=== PATIENT | female | born 1935 | race Caucasian/White ===

== ENCOUNTER 2016-08-16 05:10 | Inpatient (IN) | payer OTHER, MEDICARE ==
[2016-08-10 10:44] LABS: HEMATOCRIT 36.6 % (37.0-47.0); HEMOGLOBIN 12.1 gm/dL (12.0-15.0); MCH 33.7 pg (26.0-34.0); MCHC 33.1 % (28.0-37.0); MCV 101.8 fL (80.0-100.0); RBC 3.59 mil/uL (4.20-5.00); RDW 14.1 % (10.5-14.5); WBC 6.7 thou/uL (4.0-11.0)
[2016-08-10 10:52] LABS: URINE BILIRUBIN NEGATIVE (Negative); URINE BLOOD TRACE (Negative); URINE COLOR YELLOW; URINE GLUCOSE-RANDOM* NEGATIVE (Negative); URINE KETONES NEGATIVE (Negative); URINE LEUKOCYTES-REFLEX 1+ (Negative); URINE PROTEIN (DIPSTICK) 1+ (Negative); URINE UROBILINOGEN 0.2 E.U./dl (0.2-1.0)
[2016-08-10 10:56] LABS: APTT 23.8 Seconds (24.5-32.8)
[2016-08-10 11:01] LABS: ALBUMIN 3.5 g/dL (3.4-5.0); CALCIUM 9.1 mg/dL (8.5-10.1); CREATININE 1.9 mg/dL (0.6-1.3); POTASSIUM 4.1 mmol/L (3.5-5.1); TOTAL BILIRUBIN 0.4 mg/dL (<0.1-1.0); TOTAL PROTEIN 7.8 g/dL (6.4-8.2)
[2016-08-10 12:26] LABS: CASTS None Seen /LPF (None Seen); SQUAMOUS 4-10 Moderate /LPF (0-3)
[2016-08-10 12:27] LABS: CRYSTALS None Seen /LPF (None Seen); URINE RBC None Seen /HPF (0-2); URINE WBC-REFLEX 6-15 Few /HPF (0-5)
[~2016-08-16] VITALS: Ht 162.6 cm; Wt 87.1 kg
[2016-08-16] VITALS (12 sets, daily range): BP systolic 108–169; BP diastolic 44–81
--- NOTE | ~2016-08-16 | CATHLAB ---
[facility] [place] [address] INVASIVE PROCEDURE REPORT Name: PARULTONI MICHELLE Room #: 243-P [facility] M.R.#: [id number] Admission: 08/16/16 Attend Phys: Henry Landers MD Discharge: Date of : 39 Date of Service: 08/16/16 1554 Report #: [id number] THIS REPORT FOR: //name// CC: Yunior Landers DATE OF SERVICE: 08/16/2016 NAME OF THE STUDY: 1. Abdominal aortic aneurysm repair using [place] Excluder stent graft. 2. Right renal angiography. OPERATORS: 1. Dr. Henry Landers of cardiothoracic surgery. 2. Dr. Ross West of interventional radiology. INDICATIONS: 1. Abdominal aortic aneurysm measuring up to 6 cm. 2. Coronary artery disease. 3. Peripheral arterial disease. 4. Left renal artery occlusion. 5. Hypertension. 6. Hypercholesterolemia. DESCRIPTION OF PROCEDURE: Procedure and risks of abdominal aortic aneurysm repair using Carbond[place] Excluder stent graft were discussed with the patient by Dr. Landers including the risks and benefits of open repair versus stent graft repair and consent obtained. The risk of worsening renal failure requiring dialysis was also discussed. The patient's abdomen and both groins were prepped and draped in normal sterile fashion after the patient brought to the interventional operating suite and general anesthesia induced. Dr. Landers first performed cut down over the right common femoral artery and then over the left common femoral artery securing both of these vessels with vessel loops. I then used an 18-gauge needle to puncture the right common femoral artery followed by a wire followed by a 12-Guinean sheath. I manipulated the catheter to the level of the proximal descending thoracic aorta to allow placement of a support wire. Subsequently, Dr. Landers had made a small arteriotomy in the right common femoral artery and I placed an 18-Guinean Carbondale sheath from the right groin to the level of the mid infrarenal abdominal aorta. I then used an 18-gauge needle to make a puncture into the left common femoral artery followed by a wire, followed by a 12-Guinean sheath. I placed an angled catheter into the left groin to the level of the proximal descending thoracic aorta to allow placement of a support wire. Following this, a 12-Guinean Carbondale sheath was placed via the left groin over the support wire to the level of the mid infrarenal abdominal aorta. Subsequently, I placed a visceral catheter through this sheath and selectively catheterized the right renal artery and right renal [address] [address] INVASIVE PROCEDURE REPORT Name: TONI TERAN Room #: 243-P [facility] IN M.R.#: [id number] Admission: 08/16/16 Attend Phys: Henry Landers MD Discharge: Date of : 39 Date of Service: 08/16/16 1554 Report #: [id number] angiogram was obtained. A SV5 wire was then placed into the right renal artery and the diagnostic catheter removed and a guiding catheter placed at the origin of the right renal artery for positioning purposes. We selected a 35 x 14 x 18 cm [place] Excluder main body stent graft and placed this via the right groin. Dr. Landers and I worked together for positioning and deployment of this a short distance below the level of the right renal artery. Via the left groin, I then cannulated the contralateral gate and confirmed a good intragraft position in the usual fashion. The right renal wire and catheter had been removed. Following this, we selected a 12 mm x 14 cm contralateral limb and we placed this via the left groin. Following this, Dr. Landers and I worked together for the remaining deployment of the right iliac limb of the stent graft. Following this, a 14 mm balloon catheter was inflated throughout both iliac limbs. A [place] Tri-Lobe balloon was then placed via the right groin and inflated several times at the proximal attachment side of the graft. Following this, a pigtail catheter was placed into the upper portion of the graft. A final aortoiliac angiogram was obtained. Retrograde injections of both sheaths were accomplished. The catheters and wires were carefully removed. Both sheaths were carefully removed. Dr. Landers then closed both arteriotomy sites in both cut down incisions. Please see his note for full details. FINDINGS: Technically satisfactory abdominal aortic aneurysm repair using [place]ale Excluder stent graft. There is good flow throughout the stent graft. There is no evidence of endoleak. Specifically, no proximal type 1 endoleak is identified. Both iliac limbs are widely patent. Flow was preserved in both internal iliac arteries. RIGHT RENAL ANGIOGRAM: The right renal artery shows mild plaque in its origin, but no flow limiting stenosis. No branch vessel stenosis. IMPRESSION: Technically satisfactory abdominal aortic aneurysm repair using Carbondale Excluder stent graft. <ELECTRONICALLY SIGNED> By: Ross West MD 08/17/16 1023 1554 0115 Ross West MD /nt
--- NOTE | ~2016-08-16 | O ---
[facility] [place] [address] OPERATIVE REPORT Name: TONI TERNA Room #: 243-P [facility] IN M.R.#: [id number] Admission: 08/16/16 Attend Phys: Henry Landers MD Discharge: 08/17/16 Date of : 39 Report #: [id number] THIS REPORT FOR: //name// CC: Yunior Landers DATE OF SERVICE: 08/16/2016 PREOPERATIVE DIAGNOSIS: Infrarenal abdominal aortic aneurysm. POSTOPERATIVE DIAGNOSIS: Infrarenal abdominal aortic aneurysm. OPERATION: Stent graft implant of infrarenal abdominal aortic aneurysm device with appropriate arteriography. SURGEON: Henry Landers MD and Ross West MD ANESTHESIA: General. INDICATION: After general anesthesia was established, an incision was made in each groin to expose the common femoral artery. On the right side, the previously placed closure device had created an inflammatory response that made this a bit difficult; however, this was accomplished satisfactorily and on each side 11-Grenadian introducer sheaths were placed after 10,000 units of heparin were given. Through each side, J wires were passed and then catheter was passed and this was used to exchange for a stiff Keegan wire. Over the Keegan wire on the right side, an 18-Grenadian dilator and sheath was placed through the femoral artery cutdown. On the left side, a 12-Grenadian sheath was placed over the Keegan wire through a femoral artery cutdown. Through the left side, a universal Select catheter was placed in the right renal artery and then a guidewire and catheter were used to identify the renal artery takeoff and this was done to minimize contrast use patient with creatinine of 1.9. Based on measurements from CT scan, a 35 mm x 14 mm x 18 cm main body device was passed through the right side 18 Grenadian sheath and deployed just below the takeoff of the renal arteries. Sufficient length was placed so that a cuff could be placed if there was a leak in this divergent neck. The contralateral gate was cannulated and then a sheath shot was taken after good position and the gate was ascertained. Sheath shot with a marker catheter in place suggested that we should use a 14 cm length device and this was passed through the 12-Grenadian sheath and deployed at the contralateral gate. [facility] [address] [place] [address] OPERATIVE REPORT Name: TONI TERAN Room #: 243-P [facility] IN M.R.#: [id number] Admission: 08/16/16 Attend Phys: Henry Landers MD Discharge: 08/17/16 Date of : 39 Report #: [id number] The remainder of the main body was deployed. With all of devices deployed, the Tri-Lobe balloon was used to set the hooks at the proximal landing zone and then 14 mm noncompliant balloon was used to fully dilate the limbs within the contralateral gate and in the iliac arteries. Final arteriogram was taken and this showed no evidence of endoleak. It should be mentioned that individual iliac shots were taken as well to identify distal position of the graft to show that there were no distal leaks. With this information, the sheaths were placed over the stiff wires into the dilators and then these were removed sequentially from the left and right sides and then the arteriotomies were closed with interrupted Prolene. After flow was reestablished, heparin was reversed with small amount of protamine. Good distal pulses were ascertained. When hemostasis was satisfactory, the wounds were closed in layers. The patient was taken to the recovery area in good condition having tolerated the procedure well. Dorsalis pedis pulses were palpable. All counts were reported as correct. <ELECTRONICALLY SIGNED> By: Henry Landers MD 08/25/16 1739 1922 2312 Henry Landers MD /nt
[~2016-08-16 05:10] MED LIST: ARIMIDEX PO; BENICAR20 MG PO; BYSTOLIC 5 MG5 M1 PO; BYSTOLIC10 MG PO; CALCIUM 600 +1 EAC1 PO; CENTRUM SILVER1 EAC1 PO; CRESTOR10 MG PO; CRESTOR20 MG PO; DEMADEX10 MG PO; IRON PO; NORVASC 5 MG TAB5 MG PO; PRILOSEC 20 MG20 MG PO
[2016-08-17] VITALS (12 sets, daily range): BP systolic 97–126; BP diastolic 45–61
[2016-08-17 04:36] LABS: HEMATOCRIT 36.2 % (37.0-47.0); HEMOGLOBIN 11.4 gm/dL (12.0-15.0); MCH 33.8 pg (26.0-34.0); MCHC 31.6 % (28.0-37.0); MCV 106.8 fL (80.0-100.0); RBC 3.39 mil/uL (4.20-5.00); RDW 15.1 % (10.5-14.5)
[2016-08-17 04:48] LABS: CALCIUM 8.3 mg/dL (8.5-10.1); CREATININE 1.6 mg/dL (0.6-1.3); POTASSIUM 4.8 mmol/L (3.5-5.1)
== END 2016-08-17 13:45 | disposition home or self-care (01) | DRG 269 ==
LOC: PRE 05:10 → ICU 05:41 → TBA 05:41 → PRE 09:50 → ICU 18:06
PROVIDERS: Physician Assistant; Surgery Vascular Surgery
PROC: B4161ZZ Fluoroscopy of Right Renal Artery using Low Osmolar Contrast (ICD-10-PCS; principal; 2016-08-16)
PROC: 04V04DZ Restriction of Abdominal Aorta with Intraluminal Device, Percutaneous Endoscopic Approach (ICD-10-PCS; principal; 2016-08-16)
DX: I71.4 Abdominal aortic aneurysm, without rupture (principal); I25.10 Atherosclerotic heart disease of native coronary artery without angina pectoris; I73.9 Peripheral vascular disease, unspecified; I10 Essential (primary) hypertension; E78.00 Pure hypercholesterolemia, unspecified; Z79.899 Other long term (current) drug therapy
CPT/HCPCS: 10196; 47375; 48888; 50010; 50101; 50386; 50455; 51536; 51751; 54118; 55022; 56524; 56526; 56531; 56668; 56760; 57093; 62110; 62900; 65020; 65040; 65043; 70005

== ENCOUNTER → 2017-04-09 | Outpatient (CLI) | payer OTHER, MEDICARE ==
[2017-04-09 11:38] LABS: CREATININE 1.8 mg/dL (0.6-1.0)
== END ==
LOC: CAT 10:55
PROVIDERS: Nuclear Medicine Nuclear Cardiology
DX: I71.4 Abdominal aortic aneurysm, without rupture (principal); K44.9 Diaphragmatic hernia without obstruction or gangrene; Z95.828 Presence of other vascular implants and grafts

== ENCOUNTER → 2018-04-16 | Outpatient (CLI) | payer OTHER, MEDICARE | LOC: CAT 09:16 | DX: I71.4 Abdominal aortic aneurysm, without rupture (principal); N13.30 Unspecified hydronephrosis; N85.8 Other specified noninflammatory disorders of uterus; Z95.828 Presence of other vascular implants and grafts ==

== ENCOUNTER → 2018-10-30 | Outpatient (CLI) | payer OTHER, MEDICARE | LOC: CAT 10:25 | DX: I71.4 Abdominal aortic aneurysm, without rupture (principal); N13.1 Hydronephrosis with ureteral stricture, not elsewhere classified; N85.8 Other specified noninflammatory disorders of uterus; M47.815 Spondylosis without myelopathy or radiculopathy, thoracolumbar region; Z98.890 Other specified postprocedural states ==

== ENCOUNTER → 2018-11-26 | Outpatient (CLI) | payer OTHER, MEDICARE | LOC: LAB 08:01 | PROVIDERS: Nuclear Medicine Nuclear Cardiology | DX: I71.4 Abdominal aortic aneurysm, without rupture (principal); N85.8 Other specified noninflammatory disorders of uterus; N13.30 Unspecified hydronephrosis; N83.8 Other noninflammatory disorders of ovary, fallopian tube and broad ligament; M47.816 Spondylosis without myelopathy or radiculopathy, lumbar region; Z95.828 Presence of other vascular implants and grafts ==

== ENCOUNTER → 2018-12-31 | Outpatient (CLI) | payer OTHER, MEDICARE ==
[~2018-12-31] VITALS: Ht 162.6 cm; Wt 72.6 kg
[~2018-12-31] MED LIST changes: +BYSTOLIC20 MG PO; +CRESTOR40 MG PO; +DEMADEX20 MG PO; +OLMESARTAN MEDO40 MG PO
[2018-12-31 11:53] LABS: HEMATOCRIT 37.8 % (37.0-47.0); HEMOGLOBIN 12.4 gm/dL (12.0-15.0); MCH 33.4 pg (26.0-34.0); MCHC 32.8 g/dL (28.0-37.0); MCV 101.6 fL (80.0-100.0); RBC 3.72 mil/uL (4.20-5.00); RDW 14.3 % (10.5-14.5); WBC 6.8 thou/uL (4.0-11.0)
[2018-12-31 12:02] LABS: CALCIUM 9.6 mg/dL (8.5-10.1); CREATININE 2.4 mg/dL (0.6-1.0); POTASSIUM 4.4 mmol/L (3.5-5.1)
[2018-12-31 12:12] VITALS: BP 164/68
[2018-12-31 14:00] VITALS: BP 177/70
[2018-12-31 14:15] VITALS: BP 187/67
[2018-12-31 14:20] VITALS: BP 189/67
[2018-12-31 14:30] VITALS: BP 189/84
--- NOTE | 2018-12-31 16:39 | NUR ---
RETURN FROM IR AT 1550. HR 65 BP 150/62. RR 14 SAT 97% ON RA. PT AWAKE AND ALERT. AMBULATED TO BATHROOM WITH ASSISTANCE. STEADY GAIT. BANDAID TO BACK CLEAN DRY INTACT. DENIES PAIN. 1615 HR 65 BP 143/88. SAT 98%. IV DC'D. FULL DC INST TO PT AND NEIGHBOR. WILL HAVE F/U CTA IN FOUR MONTHS. 1630 PT DC'D PER WC WITH VOLUNTEER. VERBALIZES UNDERSTANDING OF INST. DRESSING STILL CLEAN DRY INTACT
== END | disposition home or self-care (01) ==
LOC: CAT 11:15
PROVIDERS: Nuclear Medicine Nuclear Cardiology
DX: T82.330A Leakage of aortic (bifurcation) graft (replacement), initial encounter (principal); I71.4 Abdominal aortic aneurysm, without rupture; I10 Essential (primary) hypertension; E78.00 Pure hypercholesterolemia, unspecified; E78.5 Hyperlipidemia, unspecified; K21.9 Gastro-esophageal reflux disease without esophagitis; Z85.3 Personal history of malignant neoplasm of breast; Z86.2 Personal history of diseases of the blood and blood-forming organs and certain disorders involving the immune mechanism; Z98.0 Intestinal bypass and anastomosis status; Z85.038 Personal history of other malignant neoplasm of large intestine; Z82.49 Family history of ischemic heart disease and other diseases of the circulatory system; Z82.3 Family history of stroke; Z87.891 Personal history of nicotine dependence; Y83.8 Other surgical procedures as the cause of abnormal reaction of the patient, or of later complication, without mention of misadventure at the time of the procedure

== ENCOUNTER → 2019-04-30 | Outpatient (CLI) | payer OTHER, MEDICARE ==
[~2019-04-30] MED LIST changes: +GABAPENTIN 100100 MG PO; +MEDROLDOSEPACK PO
[2019-04-30 10:39] LABS: CREATININE 1.6 mg/dL (0.6-1.0)
== END ==
LOC: CAT 10:03
PROVIDERS: Nuclear Medicine Nuclear Cardiology
DX: Z01.812 Encounter for preprocedural laboratory examination (principal); N13.39 Other hydronephrosis; N83.291 Other ovarian cyst, right side; I71.4 Abdominal aortic aneurysm, without rupture; Z95.828 Presence of other vascular implants and grafts

== ENCOUNTER 2019-05-13 10:40 | Inpatient (IN) | payer OTHER, MEDICARE ==
[~2019-05-13] VITALS: Ht 162.6 cm; Wt 74.4 kg
[~2019-05-13 10:40] MED LIST changes: -GABAPENTIN 100100 MG PO; -MEDROLDOSEPACK PO
[2019-05-13 11:09] VITALS: BP 16/79; BP 160/79
[2019-05-13 12:03] LABS: CALCIUM 9.5 mg/dL (8.5-10.1); CREATININE 1.9 mg/dL (0.6-1.0); POTASSIUM 4.4 mmol/L (3.5-5.1)
[2019-05-13 12:08] LABS: RBC 3.06 mil/uL (4.20-5.00)
[2019-05-13 12:09] LABS: HEMATOCRIT 32.1 % (37.0-47.0); HEMOGLOBIN 10.7 gm/dL (12.0-15.0); MCH 34.8 pg (26.0-34.0); MCHC 33.2 g/dL (28.0-37.0); MCV 104.9 fL (80.0-100.0); RDW 14.4 % (10.5-14.5); WBC 7.5 thou/uL (4.0-11.0)
[2019-05-13 20:00] VITALS: BP 116/58
--- NOTE | 2019-05-13 20:18 | NUR ---
PT [facility] AT APPROX 1820[facility] UNTIL 1919. VSS. PT A&OX4. GAVE REPORT FROM PACU TO ONCOMING NURSE AT SHIFT CHANGE.
[2019-05-13 21:00] VITALS: BP 126/59
[2019-05-13 22:00] VITALS: BP 132/51
[2019-05-14 01:17] VITALS: BP 143/70
[2019-05-14 04:55] VITALS: BP 127/53
[2019-05-14 05:29] LABS: HEMATOCRIT 31.4 % (37.0-47.0); HEMOGLOBIN 10.3 gm/dL (12.0-15.0); MCH 34.8 pg (26.0-34.0); MCHC 32.7 g/dL (28.0-37.0); MCV 106.4 fL (80.0-100.0); RBC 2.95 mil/uL (4.20-5.00); WBC 8.4 thou/uL (4.0-11.0)
[2019-05-14 05:45] LABS: CALCIUM 8.9 mg/dL (8.5-10.1); CREATININE 1.6 mg/dL (0.6-1.0); POTASSIUM 4.2 mmol/L (3.5-5.1)
--- NOTE | 2019-05-14 05:52 | NUR ---
ASSUMED PT CARE AT 1900. PT C/O PAIN TO LOWER LEFT EXTREMITY THAT RADIATE TO LOWER BACK. PAIN MEDICATION GIVEN WITH PARTIAL RELIEF. VSS AND PT WAS ABLE TO GET UP AND VOID ON TOILET WITH MINIMAL ASSISTANCE. PT PLAN IS TO BE DISCHARGED AND F/U WITH CLINIC PER PHYSICIAN NOTES. PT IS PROGRESSING TOWARDS DISCHARGE.
[2019-05-14 08:20] VITALS: BP 134/55
[2019-05-14 11:42] VITALS: BP 143/67
--- NOTE | 2019-05-14 13:16 | NUR ---
patient admits post AAA, reports pain in left leg. She reports she cannot get in and out of car with pain in her leg. She is currently rec steriods. Therapy eval in process. Patient prefers no skilled care. Agreeable to HH. She has the home health list of providers. She plans to review list. 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 She cont to drive. Her laundry is in the basement. She throws her laundry in trash bag and then throwns down steps to laundry. She carries laundry up stairs in small batches. Patients PCP Dr Farooq.
[2019-05-14 16:07] VITALS: BP 150/64
--- NOTE | 2019-05-14 17:35 | EKG ---
[place] [address] [facility] [place] [address] ELECTROCARDIOGRAM REPORT Name: TONI TERAN Room #: 210-P [facility] M.R.#: [id number] Admission: 05/13/19 Attend Phys: Ross West MD Discharge: Date of : 39 Report #: [id number] THIS REPORT FOR: //name// [facility] Test Date: 2019-05-14 Test Time: 08:06:59 Pat Name: TONI TERAN Department: Room: 210 P Gender: F Emotional Support Teacher: HOLLIS : 1935 Requested By: Angie Miller Order Number: [id number] MD: Mathieu Montes Measurements Intervals Brook Rate: 73 P: 61 WY: 177 QRS: 38 QRSD: 91 T: 17 QT: 422 QTc: 465 Interpretive Statements Sinus rhythm Anteroseptal infarct, age indeterminate Compared to ECG 02/02/2006 09:23:29 Septal Q waves are more prominent Electronically Signed On 05-14-2019 17:34:47 CDT by Mathieu Montes [email or web address] <ELECTRONICALLY SIGNED> By: Mathieu Montes MD, [facility] 05/14/19 1734 5 5 Mathieu Montes MD, [facility] /EPI
--- NOTE | 2019-05-14 18:03 | NUR ---
ASSUME CARE OF PT AT SHIFT CHANGE. ASSESSMENTS CHARTED. MEDS GIVEN PER MAR. VSS. A&OX4. PT IS SBA WITH WALKER. C/O PAIN IN L HIP AND LEG, BUT REFUSES ANY PAIN MEDS. WORKED WITH PT WHO WILL DO AN EVAL BEFORE DC. WILL CONTINUE TO MONITOR AND FOLLOW POC.
[2019-05-14 21:08] VITALS: BP 144/63
[2019-05-15] VITALS (7 sets, daily range): BP systolic 150–160; BP diastolic 71–75
--- NOTE | 2019-05-15 06:45 | NUR ---
ASSUMED PT CARE AT 1900. PT C/O PAIN HOWEVER REFUSED PAIN MEDICATION. ADVISED PT TO LET STAFF KNOW WHEN SHE WANTED TO BE TREATED FOR PAIN. PT UP TO BATHROOM AND MORE STABLE. PT REQUESTED PAIN MEDICATION AROUND 0130 AND SLEPT THRU NIGHT. PT IS PROGRESSING TOWARDS POC.
[2019-05-15] MEDS ORDERED: MEDROLDOSEPACK PO (07:47)
[2019-05-15] MEDS ORDERED: GABAPENTIN 100100 MG PO (07:47)
[2019-05-15 09:43] LABS: CALCIUM 9.6 mg/dL (8.5-10.1); CREATININE 1.8 mg/dL (0.6-1.0)
--- NOTE | 2019-05-15 10:50 | NUR ---
ASSUMED CARE AT 0700, SHIFT ASSESSMENT DONE, MEDS GIVEN, VSS. ROOM AIR, REPORTED PAIN, REFUSED PAIN MEDS. DISCHARGE ORDER RECEIVED, AWAITING FOR HOME HEALTH SET UP. WILL CONTINUE TO ASSESS AND ASSIST WITH DC PLANNING NEEDED.
--- NOTE | 2019-05-15 14:55 | NUR ---
FAXED REFERRAL TO [facility] SPOKE WITH ALISSA IN ADM SHE RECEIVED REFERRAL AND CAN ACCEPT PT. THEY WILL NOTIFY PT TIME OF VISITS AND WILL START VISITS ON SUNDAY.
--- NOTE | 2019-05-15 15:05 | NUR ---
Fish Cleaner Machine Tender visited with the pt at bedside regarding hh referral and recommendation for RN and PT f/u at home. Pt is receptive. She has the HH list but denied any preference. Dc assortment planner faxed the orders to [facility] and they can accept. They will see the pt tomorrow. Pt notified and her dc instructions updated.
== END 2019-05-15 15:30 | disposition home health service (06) | DRG 316 ==
LOC: CATH 10:40 → EROBS 17:21 → 2N 20:13 → ENTRNSPT 05-15 15:12 → EDTRNSPTSTS 05-15 15:15 → 2N 05-15 15:30 → CMPTRNSPT 05-16 11:27
PROVIDERS: Nuclear Medicine Nuclear Cardiology; Nurse Practitioner Adult Health; ADMIT Internal Medicine Cardiovascular Disease
PROC: 04WY3DZ Revision of Intraluminal Device in Lower Artery, Percutaneous Approach (ICD-10-PCS; principal; 2019-05-13)
PROC: 3E0R3GC Introduction of Other Therapeutic Substance into Spinal Canal, Percutaneous Approach (ICD-10-PCS; principal; 2019-05-13)
PROC: B4191ZZ Fluoroscopy of Lumbar Arteries using Low Osmolar Contrast (ICD-10-PCS; principal; 2019-05-13)
PROC: B41C1ZZ Fluoroscopy of Pelvic Arteries using Low Osmolar Contrast (ICD-10-PCS; principal; 2019-05-13)
DX: T82.338A Leakage of other vascular grafts, initial encounter (principal); I65.29 Occlusion and stenosis of unspecified carotid artery; I70.0 Atherosclerosis of aorta; E78.5 Hyperlipidemia, unspecified; I87.2 Venous insufficiency (chronic) (peripheral); I12.9 Hypertensive chronic kidney disease with stage 1 through stage 4 chronic kidney disease, or unspecified chronic kidney disease; R60.9 Edema, unspecified; E78.00 Pure hypercholesterolemia, unspecified; I08.2 Rheumatic disorders of both aortic and tricuspid valves; Y83.2 Surgical operation with anastomosis, bypass or graft as the cause of abnormal reaction of the patient, or of later complication, without mention of misadventure at the time of the procedure; M54.16 Radiculopathy, lumbar region; Z85.3 Personal history of malignant neoplasm of breast; Z82.3 Family history of stroke; Z82.49 Family history of ischemic heart disease and other diseases of the circulatory system; Z80.8 Family history of malignant neoplasm of other organs or systems; Z90.49 Acquired absence of other specified parts of digestive tract; Z87.891 Personal history of nicotine dependence; Z79.899 Other long term (current) drug therapy; Y92.89 Other specified places as the place of occurrence of the external cause; N18.9 Chronic kidney disease, unspecified
CPT/HCPCS: 10081

== ENCOUNTER → 2019-12-22 | Outpatient (CLI) | payer OTHER, MEDICARE ==
[~2019-12-22] MED LIST changes: +GABAPENTIN 100100 MG PO; +MEDROLDOSEPACK PO
[2019-12-22 12:33] LABS: CALCIUM 9.1 mg/dL (8.5-10.1); CREATININE 2.5 mg/dL (0.6-1.0); POTASSIUM 4.1 mmol/L (3.5-5.1)
[2019-12-22 13:15] LABS: CREATININE 2.6 mg/dL (0.6-1.0)
== END ==
LOC: CAT 12:00
PROVIDERS: Internal Medicine Cardiovascular Disease
DX: N13.30 Unspecified hydronephrosis (principal); I71.4 Abdominal aortic aneurysm, without rupture; N83.202 Unspecified ovarian cyst, left side; M47.815 Spondylosis without myelopathy or radiculopathy, thoracolumbar region

== ENCOUNTER → 2019-12-23 | Outpatient (CLI) | payer OTHER, MEDICARE | LOC: SJCVCIMAG 09:39 | PROVIDERS: ATTEND Internal Medicine Cardiovascular Disease | DX: R94.31 Abnormal electrocardiogram [ECG] [EKG] (principal); I08.2 Rheumatic disorders of both aortic and tricuspid valves; I21.29 ST elevation (STEMI) myocardial infarction involving other sites; N25.9 Disorder resulting from impaired renal tubular function, unspecified; I77.89 Other specified disorders of arteries and arterioles ==

== ENCOUNTER → 2020-09-24 | Outpatient (CLI) | payer OTHER, MEDICARE | LOC: SJCVC 14:29 | PROVIDERS: ATTEND Internal Medicine Cardiovascular Disease | DX: R94.31 Abnormal electrocardiogram [ECG] [EKG] (principal); I49.3 Ventricular premature depolarization; I35.0 Nonrheumatic aortic (valve) stenosis; E78.00 Pure hypercholesterolemia, unspecified; I87.2 Venous insufficiency (chronic) (peripheral); I71.4 Abdominal aortic aneurysm, without rupture; I77.9 Disorder of arteries and arterioles, unspecified; I12.9 Hypertensive chronic kidney disease with stage 1 through stage 4 chronic kidney disease, or unspecified chronic kidney disease; N18.4 Chronic kidney disease, stage 4 (severe); Z95.828 Presence of other vascular implants and grafts; Z98.890 Other specified postprocedural states; Z79.899 Other long term (current) drug therapy; Z87.891 Personal history of nicotine dependence; Z82.49 Family history of ischemic heart disease and other diseases of the circulatory system ==

== ENCOUNTER → 2020-12-28 | Outpatient (CLI) | payer OTHER, MEDICARE | LOC: SJCVCIMAG 10:13 → CAT 10:13 → SJCVCIMAG 10:19 | PROVIDERS: ATTEND Internal Medicine Cardiovascular Disease | DX: I65.23 Occlusion and stenosis of bilateral carotid arteries (principal); R94.31 Abnormal electrocardiogram [ECG] [EKG]; I08.3 Combined rheumatic disorders of mitral, aortic and tricuspid valves; I71.4 Abdominal aortic aneurysm, without rupture; M47.816 Spondylosis without myelopathy or radiculopathy, lumbar region; N13.30 Unspecified hydronephrosis; N83.8 Other noninflammatory disorders of ovary, fallopian tube and broad ligament; I27.20 Pulmonary hypertension, unspecified; N85.8 Other specified noninflammatory disorders of uterus; I77.9 Disorder of arteries and arterioles, unspecified; E78.00 Pure hypercholesterolemia, unspecified; I87.2 Venous insufficiency (chronic) (peripheral); I12.9 Hypertensive chronic kidney disease with stage 1 through stage 4 chronic kidney disease, or unspecified chronic kidney disease; N18.9 Chronic kidney disease, unspecified; Z98.890 Other specified postprocedural states; Z95.828 Presence of other vascular implants and grafts; Z79.899 Other long term (current) drug therapy; Z87.891 Personal history of nicotine dependence; Z82.49 Family history of ischemic heart disease and other diseases of the circulatory system ==